=== PATIENT | female | born 1975 | race African-American/Black ===

== ENCOUNTER 2023-12-16 07:19 | Inpatient (IN) | payer OTHER ==
[2023-12-16] VITALS (7 sets, daily range): BP systolic 150–222; BP diastolic 84–118; PULSE 84–108; RESP 18–24; TEMP 36.114–36.5292; O2SAT 95–100
[~2023-12-16] VITALS: Ht 160 cm; Wt 113.9 kg
[2023-12-16] MEDS: METHYLPREDNISOLONE SOD SUCC 125MG/2ML (ACT-O-VIAL) IV STA (07:31)
[2023-12-16] MEDS: ALBUTEROL (0.083%) 2.5MG/3ML NEB HHN STA (07:31)
[2023-12-16] MEDS: IPRATROPIUM BROMIDE (0.02%) 0.5MG/2.5ML NEB HHN STA (07:31)
[2023-12-16] MEDS: MAGNESIUM 2 G PREMIX 50 ML IV STA (08:52)
[2023-12-16] MEDS: LABETALOL 5MG/ML 4ML INJ IV NR (10:49)
[2023-12-16] MEDS ORDERED: ALBU2.5V13 NEB (11:55)
[2023-12-16] MEDS ORDERED: P50 MT (11:56)
[2023-12-16] MEDS: MORPHINE SULFATE 4 MG/ML INJ (FOR IV/IM USE) IV ONE (13:04)
[2023-12-16] MEDS ORDERED: HYDROCODONE/ACETAMINOPHEN 5/325MG TABLET PO PRN (17:15)
[2023-12-16] MEDS ORDERED: METHYLPREDNISOLONE SOD SUCC 500 MG in DEXT 5% WATER 100 ML IV NR ×2 (17:45→18:30)
[2023-12-16] MEDS: HYDRALAZINE 20MG/ML VIAL IV NR (17:46)
[2023-12-16] MEDS: METHYLPREDNISOLONE SOD SUCC 40MG/ML (ACT-O-VIAL) IV SCH (17:51)
[2023-12-16] MEDS ORDERED: HYDR12.54 PO (18:24)
[2023-12-16] MEDS ORDERED: LISI40TA13 PO ×2 (18:27)
[2023-12-16] MEDS: CLONIDINE 0.2MG TABLET PO PRN (18:55)
[2023-12-16] MEDS: OXYCODONE HCL 5MG TABLET PO PRN (20:13)
[2023-12-16] MEDS ORDERED: NALOXONE HCL 0.4MG/ML VIAL IV PRN (20:15)
[2023-12-16] MEDS: IPRATROPIUM/ALBUTEROL 0.5-3(2.5)MG/3ML NEB HHN SCH (22:20)
[2023-12-17] VITALS (8 sets, daily range): BP systolic 118–170; BP diastolic 76–98; PULSE 73–98; RESP 18–24; TEMP 35.94732–36.89184; O2SAT 95–99
[2023-12-17 06:29] LABS: POTASSIUM 4.7 mEq/L (3.5-5.1)
[2023-12-17 06:31] LABS: CALCIUM 10.1 mg/dL (8.7-10.4)
[2023-12-17 06:35] LABS: CREATININE 1.3 mg/dL (0.6-1.0)
[2023-12-17 07:47] LABS: BASOPHILS % 0.3 % (0.0-2.0); HEMATOCRIT. 40.3 % (36.0-48.0); HEMOGLOBIN. 13.4 g/dL (12.0-16.0); LYMPHOCYTES % 8.1 % (20.0-50.0); MEAN CORPUSCULAR HEMOGLOBIN 27.5 pg (28.0-32.0); MEAN CORPUSCULAR HGB CONC 33.1 g/dL (31.0-37.0); MEAN CORPUSCULAR VOLUME 82.9 fL (81.0-99.0); MEAN PLATELET VOLUME 9.7 fl (7.4-10.4); MONOCYTES % 3.3 % (2.0-8.0); NEUTROPHILS % 88.3 % (40.0-76.0); PLATELET 240 x1000/uL (130-400); RED BLOOD CELL COUNT 4.87 mill/uL (4.2-5.4); RED CELL DISTRIBUTION WIDTH 14.7 % (11.6-14.6); WHITE BLOOD COUNT 11.5 x1000/uL (4.5-11.0)
[2023-12-17] MEDS: ENOXAPARIN 30MG/0.3ML SYR SUBCUT SCH (10:00)
[2023-12-17] MEDS: METHYLPREDNISOLONE SOD SUCC 40MG/ML (ACT-O-VIAL) IV SCH (14:17)
[2023-12-17] MEDS: MONTELUKAST SODIUM 10MG TABLET PO SCH (16:35)
[2023-12-17] MEDS: FAMOTIDINE 20MG TABLET PO SCH (21:04)
[2023-12-17] MEDS: LORATADINE 10MG TABLET PO SCH (21:05)
[2023-12-17] MEDS: IPRATROPIUM/ALBUTEROL 0.5-3(2.5)MG/3ML NEB HHN SCH (21:27)
[2023-12-18] VITALS (8 sets, daily range): BP systolic 122–161; BP diastolic 79–97; PULSE 67–100; RESP 16–20; TEMP 36.114–36.6696; O2SAT 98–100
== END 2023-12-18 21:30 | disposition short-term general hospital (02) | DRG 189 ==
LOC: ER 07:19 → 8WST 12:19
PROVIDERS: ADMIT Internal Medicine; ATTEND Internal Medicine
DX: J96.01 Acute respiratory failure with hypoxia (principal); J45.901 Unspecified asthma with (acute) exacerbation; Z68.41 Body mass index [BMI] 40.0-44.9, adult; E66.9 Obesity, unspecified; I11.9 Hypertensive heart disease without heart failure; K21.9 Gastro-esophageal reflux disease without esophagitis; J00 Acute nasopharyngitis [common cold]; D72.829 Elevated white blood cell count, unspecified; Z88.6 Allergy status to analgesic agent; Z88.5 Allergy status to narcotic agent; Z88.0 Allergy status to penicillin
CPT/HCPCS: 36415; 71045; 80048; 85025; 94640; 99291; J0360; J1650; J2270; J2919; J2920; J2930; J3475; J3490; J7060